=== PATIENT | female | born 2000 | race Caucasian/White ===

== ENCOUNTER 2019-04-12 18:55 | Emergency (ER) | payer OTHER ==
[2019-04-12] MEDS ORDERED: Lorazepam 2 MG/ML VIAL ONE (19:26)
[2019-04-12 19:39] LABS: #Basophils 0.1 thou/uL (0.0-0.2); #Eosinphils 0.2 thou/uL (0.0-0.7); #Lymphocytes 5.9 thou/uL (1.20-3.40); #Monocytes 0.9 thou/uL (0.11-0.59); #Neutrophils 5.3 thou/uL (1.40-6.50); %Basophils 1.1 % (0.0-1.0); %Eosinophils 1.6 % (0.0-10.0); %Lymphocytes 47.5 % (28.0-48.0); %Monocytes 6.9 % (0.0-4.0); %Neutrophils 42.9 % (31.0-61.0); Hemoglobin 15.9 g/dL (12.0-16.0); Mean Corpuscular HGB CONC 34.5 g/dL (32.0-36.0); Mean Corpuscular Hemoglobin 30.9 pg (25.0-35.0); Mean Corpuscular Volume 89.3 fL (78.0-98.0); Mean Platelet Volume 7.5 fL (7.4-10.4); Platelet Count 281 thou/uL (130-400); RBC Distribution Width 11.8 % (11.5-14.5); Red Blood Cell (RBC) Count 5.16 mill/uL (4.00-5.20); White Blood Cell (WBC) Count 12.3 thou/uL (4.8-10.8)
[2019-04-12 19:55] LABS: ALT (SGPT) 15 U/L (8-55); AST (SGOT) 20 U/L (5-30); Albumin 4.6 g/dL (3.5-5.0); Alkaline Phosphatase 36 U/L (40-100); Anion Gap 19 mmol/L (10-20); BUN (Urea Nitrogen) 11 mg/dL (8.4-21.0); Bilirubin, Total 0.3 mg/dL (0.2-1.2); Calc. Creatinine Clearance 0 mL/min (70-130); Carbon Dioxide 15 mmol/L (22-29); Chloride 105 mmol/L (98-107); Estimated GFR-MDRD Greater than 90; Globulin 3.4 g/dL (2.4-3.5); Glucose 97 mg/dL (70-105); Potassium 3.8 mmol/L (3.5-5.1); Sodium 135 mmol/L (136-145)
--- NOTE | 2019-04-12 20:15 | RAD ---
CHEST ONE VIEW: HISTORY: Chest pain. COMPARISON: None. FINDINGS: A faint opacity projects over the left lingula. The remainder of the lungs is clear. No pneumothorax. IMPRESSION: Findings concerning for left lingular pneumonia. POS: HOME
== END 2019-04-12 20:48 | disposition home or self-care (01) ==
LOC: ERS 18:55
DX: F41.1 Generalized anxiety disorder (principal)
CPT/HCPCS: 71045; 80053; 85025; 93005; 96361; 96374; J2060

== ENCOUNTER 2020-08-03 07:32 | Emergency (ER) | payer OTHER ==
[2020-08-03] MEDS ORDERED: Ketorolac Tromethamine 30 MG/ML VIAL ONE (08:27)
[2020-08-03] MEDS ORDERED: Ondansetron PF 4 MG/2 ML Vial ONE (08:27)
[2020-08-03] MEDS ORDERED: Morphine 10 MG/ML VIAL ONE (08:38)
[2020-08-03 08:52] LABS: #Lymphocytes 1.8 thou/uL (1.20-3.40); #Monocytes 0.5 thou/uL (0.11-0.59); #Neutrophils 7.5 thou/uL (1.40-6.50); %Basophils 0.3 % (0.0-1.0); %Eosinophils 0.2 % (0.0-10.0); %Lymphocytes 17.9 % (28.0-48.0); %Monocytes 4.7 % (0.0-4.0); %Neutrophils 76.8 % (31.0-61.0); Mean Corpuscular HGB CONC 34.2 g/dL (32.0-36.0); Mean Corpuscular Volume 90.6 fL (78.0-98.0); Platelet Count 228 thou/uL (130-400); RBC Distribution Width 11.3 % (11.5-14.5); Red Blood Cell (RBC) Count 4.52 mill/uL (4.00-5.20); White Blood Cell (WBC) Count 9.8 thou/uL (4.8-10.8)
[2020-08-03 09:24] LABS: BHCG - Serum Negative (NEGATIVE); Pregs Control Background? CLEAR/WHITE (CLR/WHITE); Pregs Control Bar Appear? YES (CONTROL BAR)
[2020-08-03 09:32] LABS: ALT (SGPT) 10 U/L (8-55); AST (SGOT) 12 U/L (5-34); Alkaline Phosphatase 32 U/L (40-100); Anion Gap 16 mmol/L (10-20); BUN (Urea Nitrogen) 13 mg/dL (7.0-18.7); Bilirubin, Total 0.3 mg/dL (0.2-1.2); Calc. Creatinine Clearance 0 mL/min (70-130); Calcium 9.3 mg/dL (7.8-10.44); Carbon Dioxide 21 mmol/L (22-29); Chloride 104 mmol/L (98-107); Globulin 2.9 g/dL (2.4-3.5); Glucose 157 mg/dL (70-105); Lipase 6 U/L (8-78); Potassium 3.5 mmol/L (3.5-5.1); Protein, Total 6.9 g/dL (6.0-8.3); Sodium 137 mmol/L (136-145)
--- NOTE | 2020-08-03 10:01 | CT ---
Exam: Abdomen CT without contrast Pelvic CT without contrast HISTORY: Left flank pain COMPARISON: None FINDINGS: Abdomen CT: Lung bases:Clear Heart size: Normal heart size Aorta: Normal caliber Solid organs: Limited evaluation by the absence of intravenous contrast. Grossly no solid organ abnor mality Lymph nodes: No gastrohepatic, retrocrural or periportal lymphadenopathy Gallbladder: No CT evidence of cholelithiasis or cholecystitis Mesentery: Decreased visceral fat limits evaluation for inflammatory change. No mesenteric mass, elder opathy, free air or free fluid. Kidneys: No evidence of right-sided obstructive uropathy. There are nonobstructing 1 to 2 mm calculi in the left renal pelvis. There is an obstructing calculus in the proximal left ureter measuring 0.3 cm. There is associated mild left hydronephrosis. Distal to this calculus, the left ureter is dec ompressed. Alimentary canal: Imaging evaluation by the lack of oral contrast. No evidence of a bowel obstruction . Normal ileocecal junction. Normal caliber appendix. Scattered fecal material in a nondistended, nondilated colon. CT PELVIS: No mass, adenopathy, free air or free fluid. Reproductive organs are grossly unremarkable Urinary bladder: Decompressed. No calculi Osseous structures: No lytic or blastic lesions IMPRESSION: 1. Mild left-sided hydronephrosis secondary to a solitary calculus in the proximal left ureter. 2. Nonobstructing calculi in the left renal pelvis.
[2020-08-03 11:42] LABS: Bacteria/HPF None Seen HPF (None Seen); Bilirubin Negative (Negative); Blood, Urine 3+ (Negative); Clarity Turbid (Clear); Glucose, Urine (Dipstick) Normal (Negative); Ketone, Urine 40 mg/dL (Negative); Leukocyte Negative Leu/uL (Negative); Nitrite Negative (Negative); Protein, Urine (Dipstick) 30 mg/dL (Neg-Trace); RBC/HPF Greater than 50 HPF (0-3); Specific Gravity, Urine 1.025 (1.002-1.036); Squamous Epithelial 0-3 HPF (0-3); Urobilinogen Normal mg/dL (Less than 2); WBC/HPF 0-3 HPF (0-3)
== END 2020-08-03 11:48 | disposition home or self-care (01) ==
LOC: ERS 07:32
DX: N13.2 Hydronephrosis with renal and ureteral calculous obstruction (principal); E03.9 Hypothyroidism, unspecified
CPT/HCPCS: 74176; 80053; 81003; 81015; 83605; 83690; 84703; 85025; 87086; 94760; 96374; 96375; J1885; J2270; J2405